=== PATIENT | male | born 1960 | race Caucasian/White ===

== ENCOUNTER 2020-03-02 02:42 | Outpatient (CLI) | payer MEDICARE, SELFPAY ==
[2020-03-02 23:12] LABS: SARS-CoV-2 RNA PCR Negative
== END 2020-03-02 02:43 | disposition home or self-care (01) ==
LOC: ANHCOVIDDT 02:43
PROVIDERS: PCP Internal Medicine; Visit Provider Internal Medicine Gastroenterology
DX: Z01.812 Encounter for preprocedural laboratory examination (principal); Z20.828 Contact with and (suspected) exposure to other viral communicable diseases
CPT/HCPCS: 87635; C9803; U0003

== ENCOUNTER 2020-03-05 00:17 | Day surgery (SDC) | payer MEDICARE, SELFPAY ==
[2020-02-29 15:22] VITALS: BMI 34.5
[2020-03-05 07:33] VITALS: BMI 34.0
[2020-03-05 07:34] VITALS: BP 151/83; PULSE 72; RESP 18; TEMP 36.2; O2SAT 99
[2020-03-05] MEDS: LACTATED RINGERS 1,000 ML 150 ML IV CONT (07:43)
[2020-03-05 07:48] LABS: Glucose Point of Care 100 (65-105)
--- NOTE | 2020-03-05 07:53 | WPDANESEPPF ---
Anes - Initial Pre Proc Eval Procedure: Operation Date: 03/05/20 08:30 Proposed Procedures p Esophagogastroduodenoscopy - Mahamed Baker MD Date/Time: 03/05/20 07:53 Surgeon: Mahamed Baker MD Pre Op Diagnosis: Reflux Patient Data Age: 59 Gender: M Height: 6 ft 2 in Weight: 120 kg Last Vital Signs Temp 36.2 C L 03/05/20 07:34 Pulse 72 03/05/20 07:34 Resp 18 03/05/20 07:34 BP 151/83 H 03/05/20 07:34 Pulse Ox 99 03/05/20 07:34 Allergies Allergy/AdvReac Type Severity Reaction Status Date / Time amiodarone Allergy Severe Other Verified 03/05/20 07:30 bee venom protein (honey bee) Allergy Severe Anaphylactic Verified 03/05/20 07:30 [bees] Shock adhesive tape Allergy Intermediate Blister Verified 03/05/20 07:30 morphine Allergy Intermediate Hives Verified 03/05/20 07:30 Home Medications Medication Instructions Recorded Confirmed Type acetaminophen [Tylenol Extra 1,000 mg PO TID 02/29/20 03/05/20 History Strength] albuterol sulfate [Ventolin HFA] 2 puff INHALATION Q6H PRN 02/29/20 03/05/20 History amlodipine 5 mg PO DAILY 02/29/20 03/05/20 History ascorbic acid (vitamin C) 1,000 mg PO DAILY 02/29/20 03/05/20 History atorvastatin 40 mg PO HS 02/29/20 03/05/20 History calcitriol 0.25 mcg PO DAILY 02/29/20 03/05/20 History carisoprodol 350 mg PO TID PRN 02/29/20 03/05/20 History carvedilol 6.25 mg PO BID 02/29/20 03/05/20 History diphenhydramine HCl 50 mg PO HS 02/29/20 03/05/20 History duloxetine 60 mg PO DAILY 02/29/20 03/05/20 History ergocalciferol (vitamin D2) 50,000 unit PO WEEKLY 02/29/20 03/05/20 History fenofibrate 160 mg PO DAILY 02/29/20 03/05/20 History fluticasone propionate [Flonase 1 spray INTRANASAL PRN PRN 02/29/20 03/05/20 History Allergy Relief] furosemide 40 mg PO DAILY 02/29/20 03/05/20 History gabapentin 300 mg PO TID 02/29/20 03/05/20 History ibuprofen 400 mg PO TID 02/29/20 03/05/20 History insulin regular hum U-500 conc 75 unit SUBCUT BIDWMEAL 02/29/20 03/05/20 History [Humulin R U-500 (Conc) Kwikpen] melatonin 10 mg PO HS PRN 02/29/20 03/05/20 History ttdpwnsp-ufs-bykwx-vit K-lycop 1 tablet PO DAILY 02/29/20 03/05/20 History [Men's Multivitamin] omega-3 acid ethyl esters 1 g PO BID 02/29/20 03/05/20 History pantoprazole 40 mg PO BID 02/29/20 03/05/20 History sotalol 80 mg PO BID 02/29/20 03/05/20 History tiotropium bromide [Spiriva with 1 cap INHALATION DAILY 02/29/20 03/05/20 History HandiHaler] Laboratory Tests 03/05/20 07:46 POC Capillary Glucose 100 mg/dl mg/dl (65-105) Patient hx anesthesia problems: none Family hx anesthesia problems: none PMFSH Past Medical History Medical History (Updated 03/05/20 @ 07:54 by Rene Omalley MD) COPD (chronic obstructive pulmonary disease) HTN (hypertension) Obesity Paroxysmal A-fib Social History Social History Smoking packs per day: 1.75 Smoking cigarettes per day: 35.0 Years smoked: 43 Smoking pack-years: 75.25 Smoking status: Current every day smoker Tobacco type: cigarettes Alcohol intake: current Alcohol use details: BEERS Substance use: current Substance use type: marijuana Other substance usage details: EDIBLE 5MG Living arrangements: alone Spiritual care concerns: No Anes - Eval Final PreProcedure Day of Procedure 03/05/20 07:53 Patient weight: obese Heart: regular rate and rhythm Lungs: clear to auscultation Airway: Mallampati scale class II and special considerations poor dentition ASA classification: IV Emergent: no Anesthetic plan: proceed Anesthesia type and monitoring: general GIVS and standard monitoring Informed Consent: The patient's anesthetic plan and its attendant risks and benefits were discussed with the patient/family/POA. Questions were solicited and answers provided to the satisfaction of the patient/family/POA.
--- NOTE | 2020-03-05 08:14 | PM.HPGS ---
History of Present Illness History of Present Illness Consent: Risks, benefits, and alternatives have been discussed and questions answered. Patient agrees to proceed with procedure. Chief complaint: Reflux Narrative: Eduardo Phelan is a 59 year old W male referred for gastroscopy secondary to history of chronic peptic ulcer disease. Unfortunately the patient continues to take 4 Advil a day in addition to smoking. He also has a history of chronic gastroesophageal reflux disease. His last gastroscopy and colonoscopy 2 years ago. There is a 2 cm nonhealing ulcer in the antrum. [facility] Past Medical History Medical History COPD (chronic obstructive pulmonary disease) HTN (hypertension) Obesity Paroxysmal A-fib Social History Social History Smoking packs per day: 1.75 Smoking cigarettes per day: 35.0 Years smoked: 43 Smoking pack-years: 75.25 Smoking status: Current every day smoker Tobacco type: cigarettes Alcohol intake: current Alcohol use details: BEERS Substance use: current Substance use type: marijuana Other substance usage details: EDIBLE 5MG Living arrangements: alone Spiritual care concerns: No Meds Home Medications and Allergies Home Medications Medication Instructions Recorded Confirmed Type acetaminophen [Tylenol Extra 1,000 mg PO TID 02/29/20 03/05/20 History Strength] albuterol sulfate [Ventolin HFA] 2 puff INHALATION Q6H PRN 02/29/20 03/05/20 History amlodipine 5 mg PO DAILY 02/29/20 03/05/20 History ascorbic acid (vitamin C) 1,000 mg PO DAILY 02/29/20 03/05/20 History atorvastatin 40 mg PO HS 02/29/20 03/05/20 History calcitriol 0.25 mcg PO DAILY 02/29/20 03/05/20 History carisoprodol 350 mg PO TID PRN 02/29/20 03/05/20 History carvedilol 6.25 mg PO BID 02/29/20 03/05/20 History diphenhydramine HCl 50 mg PO HS 02/29/20 03/05/20 History duloxetine 60 mg PO DAILY 02/29/20 03/05/20 History ergocalciferol (vitamin D2) 50,000 unit PO WEEKLY 02/29/20 03/05/20 History fenofibrate 160 mg PO DAILY 02/29/20 03/05/20 History fluticasone propionate [Flonase 1 spray INTRANASAL PRN PRN 02/29/20 03/05/20 History Allergy Relief] furosemide 40 mg PO DAILY 02/29/20 03/05/20 History gabapentin 300 mg PO TID 02/29/20 03/05/20 History ibuprofen 400 mg PO TID 02/29/20 03/05/20 History insulin regular hum U-500 conc 75 unit SUBCUT BIDWMEAL 02/29/20 03/05/20 History [Humulin R U-500 (Conc) Kwikpen] melatonin 10 mg PO HS PRN 02/29/20 03/05/20 History xelidmhi-tlr-txymb-vit K-lycop 1 tablet PO DAILY 02/29/20 03/05/20 History [Men's Multivitamin] omega-3 acid ethyl esters 1 g PO BID 02/29/20 03/05/20 History pantoprazole 40 mg PO BID 02/29/20 03/05/20 History sotalol 80 mg PO BID 02/29/20 03/05/20 History tiotropium bromide [Spiriva with 1 cap INHALATION DAILY 02/29/20 03/05/20 History HandiHaler] Allergies Allergy/AdvReac Type Severity Reaction Status Date / Time amiodarone Allergy Severe Other Verified 03/05/20 07:30 bee venom protein (honey bee) Allergy Severe Anaphylactic Verified 03/05/20 07:30 [bees] Shock adhesive tape Allergy Intermediate Blister Verified 03/05/20 07:30 morphine Allergy Intermediate Hives Verified 03/05/20 07:30 Vital Signs Vital Signs - 24 hr 03/05/20 07:34 Temperature 36.2 C L Pulse Rate 72 Respiratory Rate 18 Blood Pressure 151/83 H Pulse Oximetry 99 Exam Const: Orientation/consciousness: patient oriented x3 Resp: Auscultation: clear to auscultation bilaterally Cardio: Rate: regular rate Rhythm: regular rhythm Heart sounds: no murmurs GI: GI Palp: Yes Soft to palpation, No Tenderness to palpation present (GI), Yes No hepatosplenomegaly present and No Palpable mass present Auscultation: normal bowel sounds Neuro: General: patient oriented x3 and no focal motor deficits Extrem: General: no pedal edema Assessment
[2020-03-05 09:18] VITALS: BP 132/64; PULSE 66; RESP 14; O2SAT 98
[2020-03-05 09:28] VITALS: BP 124/70; PULSE 72; RESP 16; O2SAT 98
[2020-03-05 09:29] LABS: Glucose Point of Care 119 (65-105)
[2020-03-05 09:38] VITALS: BP 134/77; PULSE 61; RESP 12; O2SAT 97
== END 2020-03-05 09:55 | disposition home or self-care (01) ==
PROVIDERS: PCP Internal Medicine; Visit Provider Internal Medicine Gastroenterology
PROC: 0DJ08ZZ Inspection of Upper Intestinal Tract, Via Natural or Artificial Opening Endoscopic (ICD-10-PCS; CPT 43235; principal; 2020-03-05 08:30)
DX: K25.7 Chronic gastric ulcer without hemorrhage or perforation (principal); K21.00 Gastro-esophageal reflux disease with esophagitis, without bleeding; I10 Essential (primary) hypertension; J44.9 Chronic obstructive pulmonary disease, unspecified; I48.0 Paroxysmal atrial fibrillation; F17.210 Nicotine dependence, cigarettes, uncomplicated; Z79.1 Long term (current) use of non-steroidal anti-inflammatories (NSAID); F12.90 Cannabis use, unspecified, uncomplicated; E66.9 Obesity, unspecified; Z68.34 Body mass index [BMI] 34.0-34.9, adult
CPT/HCPCS: 43239; 88305; J2704; J7120

== ENCOUNTER 2020-10-18 13:56 | Outpatient (CLI) | payer MEDICARE, SELFPAY ==
--- NOTE | 2020-10-18 15:06 | ECG_ITS ---
Measurements Intervals [place] Rate: 69 P: [place]: 0 QRS: 80 QRSD: 101 T: 142 QT: 400 QTc: 430 Interpretive Statements ATRIAL FIBRILLATION LOW QRS VOLTAGE IN LIMB LEADS POOR R WAVE PROGRESSION, ANTERIOR LEADS BORDERLINE ST-T WAVE ABNORMALITY- INF/HIGH LAT LEADS BASELINE ARTIFACT- I, II, III, AVR, AVL, AVF ABNORMAL ECG Electronically Signed On 10-18-2020 15:24:23 CDT by Jerod Stroud D.O.
[2020-10-18 15:47] LABS: Anion Gap 9 mmol/L (8-16); Blood Urea Nitrogen 15 mg/dL (9-20); Calcium 8.9 mg/dL (8.4-10.2); Carbon Dioxide 28 mmol/L (22-30); Chloride 104 mmol/L (98-107); Estimated Glomerular Filt Rate > 60; Glucose 124 mg/dL (75-110); Potassium 3.7 mmol/L (3.4-5.0); Sodium 141 mmol/L (137-145)
[2020-10-18 18:30] LABS: Hemoglobin A1C 6.1 % (<5.7)
== END 2020-10-18 13:57 | disposition home or self-care (01) ==
LOC: ANHSURGERY 14:00
PROVIDERS: Anesthesiology; PCP Internal Medicine; Visit Provider Urology
DX: Z01.818 Encounter for other preprocedural examination (principal); N52.9 Male erectile dysfunction, unspecified; I48.91 Unspecified atrial fibrillation; Z51.81 Encounter for therapeutic drug level monitoring; Z79.899 Other long term (current) drug therapy; I10 Essential (primary) hypertension
CPT/HCPCS: 36415; 80048; 83036; 87086; 93005

== ENCOUNTER → 2020-11-10 00:10 | Outpatient (CLI) | payer MEDICARE, SELFPAY ==
[2020-11-10 19:26] LABS: SARS-CoV-2 RNA PCR Negative
== END ==
PROVIDERS: PCP Internal Medicine; Visit Provider Urology
DX: Z01.812 Encounter for preprocedural laboratory examination (principal); Z20.822 Contact with and (suspected) exposure to COVID-19
CPT/HCPCS: C9803; U0003; U0005

== ENCOUNTER 2020-11-14 01:16 | Day surgery (SDC) | payer MEDICARE, SELFPAY ==
[2020-10-18 15:09] VITALS: BP 151/92; PULSE 85; RESP 16; TEMP 36.8; O2SAT 98; BMI 35.9
--- NOTE | 2020-11-13 14:01 | WPDANESEPPF ---
Anes - Initial Pre Proc Eval Procedure: Operation Date: 11/14/20 12:00 Proposed Procedures p Insertion Inflatable Penile Implant - Matt Nichole MD s Bilateral Vasectomy - Matt Nichole MD Date/Time: 11/13/20 14:01 Surgeon: Matt Nichole MD Pre Op Diagnosis: Erectile Dysfunc r/t arterial insufficiency,steril Patient Data Age: 60 Gender: M Height: 1.88 m Weight: 126.8 kg Last Vital Signs Temp 36.8 C 10/18/20 15:09 Pulse 85 10/18/20 15:09 Resp 16 10/18/20 15:09 BP 151/92 H 10/18/20 15:09 Pulse Ox 98 10/18/20 15:09 Allergies Allergy/AdvReac Type Severity Reaction Status Date / Time amiodarone Allergy Severe Difficulty Verified 11/14/20 10:02 Breathing bee venom protein (honey bee) Allergy Severe Anaphylactic Verified 11/14/20 10:02 [bees] Shock adhesive tape Allergy Intermediate Blister Verified 11/14/20 10:02 Home Medications Medication Instructions Recorded Confirmed Type Humulin R U-500 (Conc) Kwikpen 50 unit SUBCUT PRN PRN 02/29/20 11/14/20 History Men's Multivitamin 1 tablet PO DAILY 02/29/20 11/14/20 History acetaminophen [Tylenol Extra 1,000 mg PO TID 02/29/20 11/14/20 History Strength] albuterol sulfate [Ventolin HFA] 2 puff INHALATION Q6H PRN 02/29/20 11/14/20 History amlodipine 5 mg PO DAILY 02/29/20 11/14/20 History ascorbic acid (vitamin C) 1,000 mg PO DAILY 02/29/20 11/14/20 History atorvastatin 40 mg PO HS 02/29/20 11/14/20 History carvedilol 6.25 mg PO QAM 02/29/20 11/14/20 History diphenhydramine HCl 25 mg PO TID 02/29/20 11/14/20 History duloxetine 60 mg PO QNOON 02/29/20 11/14/20 History ergocalciferol (vitamin D2) 50,000 unit PO WEEKLY 02/29/20 11/14/20 History fenofibrate 145 mg PO DAILY 02/29/20 11/14/20 History fluticasone propionate [Flonase 1 spray INTRANASAL PRN PRN 02/29/20 11/14/20 History Allergy Relief] furosemide 40 mg PO DAILY 02/29/20 11/14/20 History gabapentin 300 mg PO TID 02/29/20 11/14/20 History melatonin 10 mg PO HS PRN 02/29/20 11/14/20 History omega-3 acid ethyl esters 500 cap PO TID 02/29/20 11/14/20 History sotalol 80 mg PO BID 02/29/20 11/14/20 History ibuprofen 400 mg PO TID 10/18/20 11/14/20 History omeprazole 20 mg PO BID 10/18/20 11/14/20 History oxycodone myristate [Xtampza ER] 9 mg PO BID 10/18/20 11/14/20 History ECG: Date of Service: 10/18/20 Procedure(s): CA 12 lead EKG Accession Number(s): [id number] cc: ~ Measurements Intervals [place] Rate: 69 P: [place]: 0 QRS: 80 QRSD: 101 T: 142 QT: 400 QTc: 430 Interpretive Statements ATRIAL FIBRILLATION LOW QRS VOLTAGE IN LIMB LEADS POOR R WAVE PROGRESSION, ANTERIOR LEADS BORDERLINE ST-T WAVE ABNORMALITY- INF/HIGH LAT LEADS BASELINE ARTIFACT- I, II, III, AVR, AVL, AVF ABNORMAL ECG Electronically Signed On 10-18-2020 15:24:23 CDT by Jerod Stroud D.O. Dictated By: Jerod Stroud DO 10/18/20 1524 Patient hx anesthesia problems: none Family hx anesthesia problems: none PMFSH Past Medical History Medical History (Updated 11/13/20 @ 14:03 by Chuy Orona MD) Chronic narcotic use CKD (chronic kidney disease) stage 2, GFR 60-89 ml/min COPD (chronic obstructive pulmonary disease) Diabetes Fibromyalgia HTN (hypertension) Obesity YIMI on CPAP Paroxysmal A-fib Peripheral neuropathy Pulmonary embolism Rheumatoid arthritis TIA (transient ischemic attack) Social History Social History Smoking packs per day: 1.5 Smoking cigarettes per day: 30.0 Years smoked: 43 Smoking pack-years: 64.50 Smoking status: Current every day smoker Tobacco type: cigarettes Alcohol intake: current Substance use: current
[2020-11-14] VITALS (13 sets, daily range): BP systolic 86–167; BP diastolic 57–83; PULSE 68–82; RESP 15–22; TEMP 35.9–36.6; O2SAT 91–100
[2020-11-14] MEDS: LACTATED RINGERS 1,000 ML 30 ML IV CONT ×2 (10:35→16:15)
[2020-11-14 10:46] LABS: Glucose Point of Care 161 mg/dl (65-105)
--- NOTE | 2020-11-14 12:22 | SUR.PREOP ---
pt informed delay in procedure.given fan for coolness.
--- NOTE | 2020-11-14 12:41 | WPDHPUPDATE1 ---
History and Physical Update Update Date/Time: 11/14/20 12:41 History and Physical has been reviewed, including an updated exam of the patient. There are NO changes in the patient's condition. - Plan Inflatable penile implant, bilateral vasectomy, excision of penile lesion Risks, benefits, and alternatives have been discussed and questions answered. Patient agrees to proceed with procedure.
[2020-11-14] MEDS: BUPIVACAINE HCL 0.25% PF 30 ML VIAL INFILTRATE (13:44)
--- NOTE | 2020-11-14 15:57 | W.PM.PROC2 ---
Procedure Note - Detailed Date of Procedure 11/14/20 Pre-op Diagnosis Erectile Dysfunc r/t arterial insufficiency,steril Post-op Diagnosis same Procedure Performed 1. Insertion of 3-piece inflatable penile prosthesis. 2. Artificial erection using pharmacological agent. 3. Bilateral vasectomy 4. Excision of penile skin lesion Surgeon Matt Nichole MD Description of Procedure Informed consent obtained, patient taken to the operating room and given preoperative IV antibiotics with vancomycin and gentamicin. Additionally the patient has been taking oral levofloxacin and done a 3-day wash with Hibiclens. The patient was shaved. He was then prepped with Betadine scrub and paint followed by ChloraPrep. Sterile drapes were placed. We again prepped with ChloraPrep. A 16-Lao Gage catheter was inserted with return of clear urine. We then performed a pharmacologically induced erection with dilute lidocaine. There was a symmetric, straight erection. At this point a 1cm right penile shaft lesion was identified was sharply excised. We cauterized the base. A interrupted 3 O chromic suture was placed to reapproximate the skin. There was a nice cosmetic result. We then made a penoscrotal 3 cm incision. We identified the right vas deferens, it was from surrounding structures, a 2cm segment was excised, the ends were cauterized, 3 0 chromic suture ties were placed on each end, and a fascial interposition was performed. The vas deference was sent as specimen. We then performed identical procedure on the contralateral side. We dissected bluntly down to identify the corporal bodies taking great care not to injure the urethra. Stay sutures of 2-0 PDS were placed in the corporal body. We sharply opened the corpora. We then serially dilated up to a 12 Petit dilator. We then measured the corpora. Measurements were 13.5 cm proximally and 10.5 cm distally. We irrigated and there was no injury. We then performed an identical procedure on the contralateral side. Measurements were 13.5 cm proximal, 10.5 cm distal. Dilators were placed into the corpora bilaterally confirming that there was no crossover. We elected to place an AMS CX device 21 cm + 3 cm of rear tip extenders. We again irrigated the corporal bodies. We then inserted the prosthesis. We inflated using a surrogate reservoir and the device sat nicely with tips in the proximal glans, we felt that there was the ability to place additional length and therefore we exchanged to a 4cm rear tip for a total of 21cm +4 cm of rear tip. Additionally, the left cylinder did appear slightly more lateral than the right, we therefore removed the suture in repassed the left cylinder with a more medial and symmetric location. At this point we then inflated and the tips were in the mid glans. We then deflated. We then closed the pre-placed 2-0 PDS sutures. We again inflated using the surrogate reservoir with an very nice cosmetic result. We then made a left lower quadrant incision for approximately 3 cm. We bluntly dissected down to the external oblique fascia. The fascia was opened. We then the rectus muscle and created a space superiorly in the sub rectus. We emptied the bladder prior to our incision. We then irrigated copiously. We pre-placed 0 Vicryl sutures. We placed the reservoir in the sub rectus space. We fill it with 100 mL and there was no back pressure. We then left 90 mL in the reservoir. Our pre-placed external oblique fascia sutures were closed. We then made a subdartos pouch in the midline for the pump placement. It sat nicely in the inferior scrotum. We then closed the hiatus with 3-0 Vicryl suture. The tubing was then brought up to the abdominal incision. Using the quick connect device, we connected the pump to the reservoir. We then cycled the device again and it functioned nicely. We then removed the stay sutures through the glans. We then again irrigated copiously. We closed the scrotal incision with m
[2020-11-14 16:38] LABS: Glucose Point of Care 172 mg/dl (65-105)
[2020-11-14] MEDS: fentaNYL CITRATE INJ (*CRX) 100 MCG/2 ML VIAL 25 MCG IV PUSH ×2 (16:56→17:24)
[2020-11-14] MEDS: ACETAMINOPHEN 500 MG TABLET 1000 MG PO (20:53)
[2020-11-14] MEDS: PANTOPRAZOLE 40 MG TABLET PO (20:53)
[2020-11-14] MEDS: ATORVASTATIN 40 MG TABLET PO (20:54)
[2020-11-14] MEDS: GABAPENTIN 300 MG CAPSULE PO (20:54)
[2020-11-14] MEDS: MORPHINE SULFATE (*CRX) 2 MG/ML INJ IV PUSH (20:54)
[2020-11-14] MEDS: NICOTINE (*PBKC) 7 MG PATCH 1 PATCH TRANSDERM (21:35)
[2020-11-14] MEDS: MELATONIN 5 MG TABLET 10 MG PO (21:42)
[2020-11-14 22:31] LABS: Glucose Point of Care 133 mg/dl (65-105)
[2020-11-14] MEDS: HYDROcodone/acetaminophen (*CRX) 5-325 MG TABLET 1 TAB PO (23:53)
[2020-11-15] MEDS: HYDROcodone/acetaminophen (*CRX) 5-325 MG TABLET 1 TAB PO ×3 (04:54→13:50)
[2020-11-15 06:07] VITALS: BP 143/81; PULSE 94; RESP 18; TEMP 37.1; O2SAT 94
[2020-11-15] MEDS: MORPHINE SULFATE (*CRX) 2 MG/ML INJ IV PUSH (07:32)
[2020-11-15] MEDS: ACETAMINOPHEN 500 MG TABLET 1000 MG PO ×2 (08:48→12:27)
[2020-11-15] MEDS: GABAPENTIN 300 MG CAPSULE PO ×2 (08:48→12:28)
[2020-11-15] MEDS: ASCORBIC ACID 500 MG TABLET 1000 MG PO (08:49)
[2020-11-15] MEDS: FENOFIBRATE NANOCRYSTALLIZED 145 MG TABLET PO (08:49)
[2020-11-15] MEDS: THERAPEUTIC MULTIVITAMINS/MINERALS TAB (*BKC) 1 TABLET PO (08:49)
[2020-11-15] MEDS: NICOTINE (*PBKC) 7 MG PATCH 1 PATCH TRANSDERM (08:50)
[2020-11-15] MEDS: levoFLOXacin 500 MG TABLET PO (08:50)
--- NOTE | 2020-11-15 08:50 | WPDANESPN ---
Anes - Prog Note Post-Op Date/Time: 11/15/20 08:50 Cardiovascular status: normal Respiratory status: normal Airway patency: baseline Mental status: baseline Post-Op hydration status: normal Vital Signs: Last Vital Signs Temp 37.1 C 11/15/20 06:07 Pulse 94 11/15/20 06:07 Resp 18 11/15/20 06:07 BP 143/81 H 11/15/20 06:07 Pulse Ox 94 11/15/20 06:07 Pain Score (VAS): 6/10. Patient resting in bed at time of assessment, complaints of discomfort. Discussed pt condition with RN and verified PRN pain management medications were available to patient with RN. I/O: Intake & Output 11/14/20 11/15/20 11/15/20 23:59 07:59 15:59 Intake Total 300 250 Output Total 775 Balance -475 250 11/14/20 11/14/20 11/14/20 10:37 16:19 21:43 POC Capillary Glucose 161 H 172 H 133 H Post-procedural complaints: none Patient Feedback: Patient satisfied with anesthetic care.
[2020-11-15 08:51] VITALS: PULSE 90
[2020-11-15] MEDS: carvediloL 6.25 MG TABLET PO (08:51)
[2020-11-15] MEDS: amLODIPine BESYLATE 5 MG TABLET PO (08:51)
[2020-11-15] MEDS: PANTOPRAZOLE 40 MG TABLET PO (08:52)
[2020-11-15] MEDS: GENTAMICIN 80MG/SOD CHL 50 ML 80 MG/50 ML BAG 100 MG IVPB (11:03)
[2020-11-15] MEDS: DULoxetine HCL 60 MG CAPSULE.DR PO (12:28)
--- NOTE | 2020-11-15 12:28 | WPDUROPN2 ---
Progress Note: A&P Assessment and Plan (1) Erectile dysfunction: Code(s): N52.9 - Male erectile dysfunction, unspecified Status: Acute Assessment and Plan: Patient is doing well post op since his catheter was removed. When he urinates, he will be able to go home. Subjective Subjective Date/Time Seen: 11/15/20 12:28 POD #1 IPP Patient was having moderate/severe pain, which has significantly improved s/p catheter and dressing removal. His incisions are causing some discomfort as well as his partial erection. He is tolerating diet and activity at this time. Catheter removed this morning, but patient hasn't urinated yet. Review of Systems Cardiovascular: Cardiovascular: Denies no additional cardiovascular complaints and Denies chest pain Respiratory: Respiratory: Reports no additional respiratory complaints Gastrointestinal: Gastrointestinal: Reports abdominal pain, Denies nausea and Denies vomiting Genitourinary: Genitourinary: Denies hematuria Exam Resp: Effort & Inspection: normal respiratory effort Cardio: Rate: regular rate GI: Inspection: incision (well approximated, no drainage present, no edema, ecchymosis present) GI Palp: Yes Soft to palpation and Yes Tenderness to palpation present (GI) (suprapubic area has ecchymosis and his abdominal incisions is healing well) : General: Yes no CVA tenderness Male General Exam: Yes ecchymosis and Yes edema Penis: Yes ecchymosis and Yes edematous Scrotum: ecchymosis and edematous Extrem: General: no edema Objective Data Vital Signs Vital Signs: Vital Signs - 24 hr 11/14/20 16:15 11/14/20 16:32 11/14/20 16:47 Temperature 97.9 F Pulse Rate 73 76 79 Respiratory Rate 20 15 18 Blood Pressure 156/69 H 120/73 114/63 Pulse Oximetry 93 93 93 11/14/20 17:06 11/14/20 17:19 11/14/20 17:35 Temperature Pulse Rate 77 70 73 Respiratory Rate 18 16 16 Blood Pressure 106/58 L 107/59 L 111/57 L Pulse Oximetry 93 93 93 11/14/20 18:00 11/14/20 18:45 11/14/20 20:45 Temperature 97.1 F L 96.7 F L 97.2 F L Pulse Rate 68 70 82 Respiratory Rate 18 16 22 H Blood Pressure 86/57 L 113/67 118/73 Pulse Oximetry 92 98 100 11/14/20 21:09 11/14/20 23:50 11/15/20 06:07 Temperature 98.7 F Pulse Rate 76 94 Respiratory Rate 18 Blood Pressure 143/81 H Pulse Oximetry 100 91 94 11/15/20 08:51 Temperature Pulse Rate 90 Respiratory Rate Blood Pressure Pulse Oximetry Intake/Output Intake/Output: Intake & Output 11/12/20 11/13/20 11/14/20 11/15/20 23:59 23:59 23:59 23:59 Intake Total 912.5 300 Output Total 1050 1050 Balance -137.5 -750 Meds/Results Medications: Active Medications Generic Name Dose Route Start Last Admin Trade Name Freq PRN Reason Stop Dose Admin Acetaminophen 1,000 mg 11/14/20 20:00 11/15/20 08:48 Acetaminophen 500 Mg Tablet PO 1,000 mg TID MARTY Administration Hydrocodone Bitart/Acetaminophen 1 tab 11/14/20 17:48 11/15/20 09:24 Hydrocodone/Acetaminophen (*Crx) 5-325 Mg Tablet PO 1 tab Q4H PRN Administration Pain Rated 1-6 Albuterol 2 puff 11/14/20 17:48 Albuterol Sulfate (*Sp) Aerosol 1 Puff INHALATION Q6H PRN Shortness Of Breath Or Wheezing Amlodipine Besylate 5 mg 11/15/20 09:00 11/15/20 08:51 Amlodipine Besylate 5 Mg Tablet PO 5 mg DAILY MARTY Administration Ascorbic Acid 1,000 mg 11/15/20 09:00 11/15/20 08:49 Ascorbic Acid 500 Mg Tablet PO 1,000 mg DAILY MARTY Administration Atorvastatin Calcium 40 mg 11/14/20 21:00 11/14/20 20:54 Atorvastatin 40 Mg Tablet PO 40 mg HS MARTY Administration Carvedilol 6.25 mg 11/15/20 09:00 11/15/20 08:51 Carvedilol 6.25 Mg Tablet PO 6.25 mg QAM MARTY Administration Diphenhydramine HCl 25 mg 11/14/20 17:48 Diphenhydramine Hcl Cap 25 Mg Capsule PO TID PRN ALLERGY SYMPTOMS Docusate Sodium 100 mg 11/14/20 21:00 11/15/20 08:55 Docusate Sodium 100 Mg Capsule
== END 2020-11-15 14:45 | disposition home or self-care (01) ==
LOC: ANHSURGERY 09:35 → ANH3MED 18:04
PROVIDERS: PCP Internal Medicine; Visit Provider Urology
PROC: (CPT 54405; principal; 2020-11-14 12:00)
PROC: (CPT 55250; 2020-11-14 12:00)
DX: N52.01 Erectile dysfunction due to arterial insufficiency (principal); Z30.2 Encounter for sterilization; N48.89 Other specified disorders of penis; I12.9 Hypertensive chronic kidney disease with stage 1 through stage 4 chronic kidney disease, or unspecified chronic kidney disease; E11.22 Type 2 diabetes mellitus with diabetic chronic kidney disease; N18.2 Chronic kidney disease, stage 2 (mild); J44.9 Chronic obstructive pulmonary disease, unspecified; G47.33 Obstructive sleep apnea (adult) (pediatric); I48.0 Paroxysmal atrial fibrillation; E11.42 Type 2 diabetes mellitus with diabetic polyneuropathy; M06.9 Rheumatoid arthritis, unspecified; Z86.73 Personal history of transient ischemic attack (TIA), and cerebral infarction without residual deficits; E66.9 Obesity, unspecified; Z68.35 Body mass index [BMI] 35.0-35.9, adult; F17.210 Nicotine dependence, cigarettes, uncomplicated; F12.90 Cannabis use, unspecified, uncomplicated; Z79.4 Long term (current) use of insulin; Z79.51 Long term (current) use of inhaled steroids
CPT/HCPCS: 54405; 54235; 55250; 11421; 82948; 88300; 88305; A9270; C9803; J0330; J1580; J2270; J2370; J2405; J2704; J2710; J3010; J3370; J7030; J7120; U0003; U0005